=== PATIENT | male | born 1935 | race Hispanic/Latino ===

== ENCOUNTER → 2019-06-14 | Outpatient (CLI) | payer OTHER | END | disposition home or self-care (01) | LOC: SHCH 09:23 | PROVIDERS: ATTEND Internal Medicine Cardiovascular Disease | DX: I11.9 Hypertensive heart disease without heart failure (principal); I08.0 Rheumatic disorders of both mitral and aortic valves | CPT/HCPCS: 93306 ==

== ENCOUNTER → 2021-06-01 | Outpatient (CLI) | payer OTHER | END | disposition home or self-care (01) | LOC: SHCH 14:02 | PROVIDERS: ATTEND Internal Medicine Cardiovascular Disease | DX: I08.0 Rheumatic disorders of both mitral and aortic valves (principal) | CPT/HCPCS: 93306; 93356 ==

== ENCOUNTER → 2022-11-19 | Outpatient (CLI) | payer OTHER | END | disposition home or self-care (01) | LOC: SHCH 07:32 | PROVIDERS: ATTEND Internal Medicine Cardiovascular Disease | DX: I08.0 Rheumatic disorders of both mitral and aortic valves (principal); I25.810 Atherosclerosis of coronary artery bypass graft(s) without angina pectoris | CPT/HCPCS: 93306 ==

== ENCOUNTER → 2024-03-20 | Outpatient (CLI) | payer OTHER | END | disposition home or self-care (01) | LOC: SHCH 07:34 | PROVIDERS: ATTEND Internal Medicine Cardiovascular Disease | DX: I08.0 Rheumatic disorders of both mitral and aortic valves (principal) | CPT/HCPCS: 93306 ==